=== PATIENT | female | born 1985 | race Caucasian/White ===

== ENCOUNTER 2019-02-09 22:52 | Emergency (ER) | payer OTHER ==
[~2019-02-09] VITALS: Ht 162.6 cm; Wt 97.5 kg
[~2019-02-09 22:52] MED LIST: ACET500 PO; ALBU90OI INH; AMOX500 PO; AZIT250 PO; BRINTELLIX10 MG PO; BUSP15 PO; FAMO40 PO; FLUO20 PO; HYDACE5 PO; HYDACE5325 PO; MULVITMINE PO; OMEP20ER PO; ONDA4 PO; PREN-16 PO; PROM25 PO; RANI150 PO; RXHYD5325 PO; RXHYDACE PO; RXPROM25 PO; SERT25 PO; TRI SPRINTEC; WELLBUTRIN; ZOLOFT
[2019-02-09] MEDS ORDERED: HYDROXYZINE HCL 10 MG (23:10)
[2019-02-09] MEDS ORDERED: BRINTELLIX20 MG PO (23:10)
[2019-02-09] MEDS ORDERED: Minipress1 MG PO (23:10)
[2019-02-09] MEDS ORDERED: SUBVENITE200 MG PO (23:10)
[2019-02-09] MEDS ORDERED: Atarax10 MG PO (23:23)
[2019-02-09] MEDS ORDERED: LAMO25 PO (23:25)
[2019-02-09] MEDS ORDERED: Zantac150 MG PO (23:26)
[2019-02-09] MEDS ORDERED: ARIPIPRAZOLE5 MG PO (23:27)
== END 2019-02-10 00:17 | disposition home or self-care (01) ==
LOC: ER 22:52
DX: S51.812A Laceration without foreign body of left forearm, initial encounter (principal); W26.0XXA Contact with knife, initial encounter; Z88.8 Allergy status to other drugs, medicaments and biological substances; Z79.899 Other long term (current) drug therapy; F32.9 Major depressive disorder, single episode, unspecified; K21.9 Gastro-esophageal reflux disease without esophagitis; F17.210 Nicotine dependence, cigarettes, uncomplicated
CPT/HCPCS: 12001; 99282-25

== ENCOUNTER 2019-04-16 12:18 | Emergency (ER) | payer OTHER ==
[~2019-04-16] VITALS: Ht 162.6 cm; Wt 96.6 kg
[~2019-04-16 12:18] MED LIST changes: +ARIPIPRAZOLE5 MG PO; +Atarax10 MG PO; +BRINTELLIX20 MG PO; +CALCIUM 500 +1 EAC2 PO; +HYDR1TAB94 PO; +Minipress1 MG PO; +SUBVENITE200 MG PO; +Zantac150 MG PO
[2019-04-16 13:39] LABS: BASOPHILS ABSOLUTE AUTO 0.03 K/mm3 (0.00-0.23); BASOPHILS PERCENT AUTO 1 % (0-2); EOSINOPHILS ABSOLUTE AUTO 0.03 K/mm3 (0.00-0.68); EOSINOPHILS PERCENT AUTO 1 % (0-6); Hematocrit 41.3 % (33.0-51.0); Hemoglobin 13.5 g/dL (11.5-16.0); IMMATURE GRAN ABSOLUTE AUTO 0.01 K/mm3 (0.00-0.10); IMMATURE GRAN PERCENT AUTO 0 % (0-1); LYMPHOCYTES ABSOLUTE AUTO 1.16 K/mm3 (0.84-5.20); LYMPHOCYTES PERCENT AUTO 36 % (21-46); MONOCYTES ABSOLUTE AUTO 0.31 K/mm3 (0.16-1.47); MONOCYTES PERCENT AUTO 10 % (4-13); Mean Corpuscular HGB 30.3 pg (26.0-34.0); Mean Corpuscular HGB Conc 32.7 g/dL (31.5-36.5); Mean Corpuscular Volume 93 fL (80-100); Mean Platelet Volume 10.6 fL (9.1-12.4); NEUTROPHILS ABSOLUTE AUTO 1.65 K/mm3 (1.96-9.15); NEUTROPHILS PERCENT AUTO 52 % (41-73); Platelet Count 190 K/mm3 (150-400); RDW Coefficient Variation 13.1 % (11.7-14.2); RDW Standard Deviation 44.7 fL (35.1-46.3); Red Blood Cell Count 4.46 M/mm3 (3.80-5.20); White Blood Cell Count 3.19 K/mm3 (4.00-11.30)
[2019-04-16 13:59] LABS: Alanine Aminotransfer (ALT/SGP 1260 U/L (12-78); Albumin, Blood 3.7 g/dL (3.4-5.0); Albumin/Globulin Ratio 1.1 (0.8-1.8); Alk Phos 163 U/L (50-136); Anion Gap 6 mmol/L (6-16); Aspartate Aminotrans (AST/SGOT 935 U/L (12-37); Bilirubin, Total 0.6 mg/dL (0.1-1.0); Blood Urea Nitrogen 20 mg/dL (8-24); Bun/Creatinine Ratio 25.5 (12.0-20.0); CO2, Blood 27 mmol/L (21-32); Calcium, Blood 9.2 mg/dL (8.5-10.1); Chloride, Blood 107 mmol/L (98-108); Creatinine, Blood 0.78 mg/dL (0.40-1.00); Globulin, Blood 3.3 g/dL (2.2-4.0); Glomerular Filtration Rate >60 (60-); Glucose, Blood 93 mg/dL (70-99); Potassium, Blood 4.2 mmol/L (3.5-5.5); Sodium, Blood 140 mmol/L (136-145)
[2019-04-16 15:12] LABS: Source, Urine Clean Catch
[2019-04-16 15:20] LABS: Bilirubin, Urine Neg (Neg); Blood, Urine Neg (Neg); Glucose Qualitative, Urine Neg (Neg); Ketones, Urine Neg (Neg); Leukocyte Esterase, Urine Neg (Neg); Nitrite, Urine Neg (Neg); Protein, Urine Neg (Neg); Specific Gravity, Urine 1.015 (1.003-1.022); Urobilinogen, Urine NORM (Normal)
[2019-04-16 15:29] LABS: Appearance, Urine Clear (Clear); Color, Urine Yellow (P-Yellow)
[2019-04-16] MEDS ORDERED: ONDA4ODT SL (15:30)
[2019-04-16] MEDS ORDERED: IBUP400 PO (15:30)
== END 2019-04-16 15:57 | disposition home or self-care (01) ==
LOC: ER 12:18
PROVIDERS: Physician Assistant
DX: R11.2 Nausea with vomiting, unspecified (principal); R10.9 Unspecified abdominal pain; R74.0 Nonspecific elevation of levels of transaminase and lactic acid dehydrogenase [LDH]; D72.819 Decreased white blood cell count, unspecified; F17.200 Nicotine dependence, unspecified, uncomplicated; Z87.442 Personal history of urinary calculi; Z88.8 Allergy status to other drugs, medicaments and biological substances; Z79.899 Other long term (current) drug therapy
CPT/HCPCS: 36415; 80053; 81003; 83690; 85025; 96374; 99284-25; J2405; J7120

== ENCOUNTER 2021-03-10 11:31 | Emergency (ER) | payer OTHER ==
[~2021-03-10] VITALS: Ht 162.6 cm; Wt 86.2 kg
[~2021-03-10 11:31] MED LIST changes: +IBUP400 PO; +ONDA4ODT SL
== END 2021-03-10 12:35 | disposition home or self-care (01) ==
LOC: ER 11:31
DX: S51.811A Laceration without foreign body of right forearm, initial encounter (principal); Z23 Encounter for immunization; K21.9 Gastro-esophageal reflux disease without esophagitis; Z79.899 Other long term (current) drug therapy; Z88.8 Allergy status to other drugs, medicaments and biological substances; W45.8XXA Other foreign body or object entering through skin, initial encounter
CPT/HCPCS: 12002; 90471; 90714; 99282-25

== ENCOUNTER 2023-04-22 09:26 | Emergency (ER) | payer OTHER ==
[~2023-04-22] VITALS: Ht 162.6 cm; Wt 72.6 kg
[2023-04-22] MEDS ORDERED: AMOCLA875 PO (11:40)
[2023-04-22 11:56] VITALS: BP 126/77
== END 2023-04-22 12:01 | disposition home or self-care (01) ==
LOC: ER 09:26
DX: K02.9 Dental caries, unspecified (principal); F17.210 Nicotine dependence, cigarettes, uncomplicated; K21.9 Gastro-esophageal reflux disease without esophagitis; Z79.899 Other long term (current) drug therapy; Z88.6 Allergy status to analgesic agent; Z88.8 Allergy status to other drugs, medicaments and biological substances
CPT/HCPCS: 64400; 99282-25

== ENCOUNTER 2024-06-19 18:03 | Observation (INO) | payer OTHER ==
[~2024-06-19] VITALS: Ht 157.5 cm; Wt 49.9 kg
[~2024-06-19 18:03] MED LIST changes: +AMOCLA875 PO; +CEPH500 PO
[2024-06-19] MEDS ORDERED: Ondansetron HCl 2 MG / ML 2ML Vial IV ONE ×2 (19:05→23:25)
[2024-06-19] MEDS ORDERED: Ketorolac Tromethamine 15mg Vial IV ONE (19:05)
[2024-06-19 20:11] LABS: BASOPHILS ABSOLUTE AUTO 0.03 K/mm3 (0.00-0.23); BASOPHILS PERCENT AUTO 0 % (0-2); EOSINOPHILS ABSOLUTE AUTO 0.03 K/mm3 (0.00-0.68); EOSINOPHILS PERCENT AUTO 0 % (0-6); Hematocrit 42.5 % (33.0-51.0); Hemoglobin 13.7 g/dL (11.5-16.0); IMMATURE GRAN ABSOLUTE AUTO 0.02 K/mm3 (0.00-0.10); IMMATURE GRAN PERCENT AUTO 0 % (0-1); LYMPHOCYTES ABSOLUTE AUTO 1.62 K/mm3 (0.84-5.20); LYMPHOCYTES PERCENT AUTO 17 % (21-46); MONOCYTES ABSOLUTE AUTO 0.57 K/mm3 (0.16-1.47); MONOCYTES PERCENT AUTO 6 % (4-13); Mean Corpuscular HGB 26.2 pg (26.0-34.0); Mean Corpuscular HGB Conc 32.2 g/dL (31.5-36.5); Mean Corpuscular Volume 81 fL (80-100); Mean Platelet Volume 9.3 fL (9.1-12.4); NEUTROPHILS ABSOLUTE AUTO 7.39 K/mm3 (1.96-9.15); NEUTROPHILS PERCENT AUTO 77 % (41-73); Platelet Count 274 K/mm3 (150-400); RDW Coefficient Variation 14.5 % (11.7-14.2); RDW Standard Deviation 42.8 fL (35.1-46.3); Red Blood Cell Count 5.22 M/mm3 (3.80-5.20); White Blood Cell Count 9.66 K/mm3 (4.00-11.30)
[2024-06-19 20:17] LABS: CORONAVIRUS COVID-19 AG Negative (NEGATIVE); INFLUENZA A AG Negative (NEGATIVE); INFLUENZA B AG Negative (NEGATIVE)
[2024-06-19 20:34] LABS: Magnesium, Blood 2.1 mg/dL (1.6-2.4)
[2024-06-19 20:35] LABS: Salicylate <1.7 mg/dL (2.8-20.0)
[2024-06-19 20:36] LABS: Alanine Aminotransfer (ALT/SGP 87 U/L (12-78); Albumin, Blood 3.4 g/dL (3.4-5.0); Albumin/Globulin Ratio 0.8 (0.8-1.8); Alk Phos 171 U/L (50-136); Anion Gap 7 mmol/L (3-11); Aspartate Aminotrans (AST/SGOT 27 U/L (12-37); Bilirubin, Total 0.3 mg/dL (0.1-1.0); Blood Urea Nitrogen 16 mg/dL (8-24); Bun/Creatinine Ratio 27.8 (12.0-20.0); CO2, Blood 29 mmol/L (21-32); Calcium, Blood 9.2 mg/dL (8.5-10.1); Chloride, Blood 108 mmol/L (98-108); Creatinine, Blood 0.58 mg/dL (0.40-1.00); Globulin, Blood 4.4 g/dL (2.2-4.0); Glomerular Filtration Rate 119 (60-); Glucose, Blood 132 mg/dL (70-99); Potassium, Blood 3.7 mmol/L (3.5-5.5); Sodium, Blood 140 mmol/L (136-145); Total Protein, Blood 7.8 g/dL (6.4-8.2)
[2024-06-19 20:37] LABS: Acetaminophen, Random <2.0 ug/mL (10.0-30.0)
[2024-06-19] MEDS ORDERED: Ondansetron 4 MG SoluTab SL PRN (23:35)
[2024-06-20] MEDS ORDERED: Loperamide HCl 2 MG Cap PO PRN ×2 (14:40)
[2024-06-20 16:33] LABS: Source, Urine Clean Catch
[2024-06-20 16:40] LABS: Appearance, Urine Hazy (Clear); Bilirubin, Urine Neg (Neg); Blood, Urine Neg (Neg); Glucose Qualitative, Urine Neg (Neg); Ketones, Urine Neg (Neg); Leukocyte Esterase, Urine 3+ (Neg); Nitrite, Urine Neg (Neg); Protein, Urine 1+ (Neg); Urobilinogen, Urine 1+ (Normal)
[2024-06-20 17:00] LABS: U Amphetamine Screen DETECTED; U Barbituate Screen Not Detected; U Benzodiazapine Screen Not Detected; U Buprenorphine Screen Not Detected; U Cannabinoids Screen Not Detected; U Cocaine Screen Not Detected; U Methadone Screen Not Detected; U Methamphetamine Screen DETECTED; U Opiates Screen Not Detected; U Oxycodone Screen Not Detected; U Phencyclidine Screen Not Detected
[2024-06-20 17:04] LABS: Color, Urine Pale Yellow (P-Yellow)
[2024-06-20 17:06] LABS: Amorphous Light (0-Heavy); Bacteria Many /hpf; Red Blood Cells, Urine 0-2 /hpf (0-2); Squamous Epithelial Cells Few /hpf (Few)
[2024-06-20 20:12] VITALS: BP 135/90
[2024-06-20] MEDS ORDERED: Cephalexin Monohydrate 500 MG Cap PO SCH (21:00)
[2024-06-22 23:05] LABS: FENTANYL, URN, SCREEN PresumptivePOS ng/mL (Cutoff 1)
[2024-06-25 18:54] LABS: FENTANYL, URN, QUANT <1.0 ng/mL; NORFENTANYL, URN, QUANT 52.8 ng/mL
== END 2024-06-20 21:45 | disposition other institution (70) ==
LOC: ER 18:03 → EOR 18:04
PROVIDERS: Student in an Organized Health Care Education/Training Program; ADMIT Student in an Organized Health Care Education/Training Program
DX: F33.2 Major depressive disorder, recurrent severe without psychotic features (principal); R45.851 Suicidal ideations; F11.20 Opioid dependence, uncomplicated; F15.20 Other stimulant dependence, uncomplicated; F43.10 Post-traumatic stress disorder, unspecified; F17.210 Nicotine dependence, cigarettes, uncomplicated; K21.9 Gastro-esophageal reflux disease without esophagitis; R10.9 Unspecified abdominal pain; Z88.8 Allergy status to other drugs, medicaments and biological substances
CPT/HCPCS: 74177; 80053; 80307; 80320; 81001; 81025; 83690; 83735; 84703; 85025; 87086; 87428-QW; 93005; 93010; 96374; 96375; 96376; 99285-25; A9270; G0378; G0480; J1885; J2405; Q9967

== ENCOUNTER 2024-06-20 12:13 | Inpatient (IN) | payer OTHER ==
[~2024-06-20] VITALS: Ht 162.6 cm; Wt 61.7 kg
[2024-06-20] MEDS ORDERED: TraZODone HCl 50 MG Tab PO PRN (13:30)
[2024-06-20] MEDS ORDERED: Ondansetron 4 MG SoluTab MM PRN (13:30)
[2024-06-20] MEDS ORDERED: Melatonin 3 MG Tab PO PRN (13:30)
[2024-06-20] MEDS ORDERED: Polyethylene Glycol 3350 17 gm PO PRN (13:30)
[2024-06-20] MEDS ORDERED: OLANZapine ODT 10 MG Tab MM PRN (13:30)
[2024-06-20] MEDS ORDERED: Acetaminophen 325 MG TABLET PO PRN (13:30)
[2024-06-20] MEDS ORDERED: DiphenhydrAMINE HCl 50 MG Cap PO PRN (13:35)
[2024-06-20] MEDS ORDERED: Calcium Carbonate 500 MG Tab Chew PO PRN (13:35)
[2024-06-20] MEDS ORDERED: DiphenhydrAMINE HCl 50 MG/ML 1ML Vial IV PRN (13:35)
[2024-06-20] MEDS ORDERED: Haloperidol 5 MG Tab PO PRN (13:35)
[2024-06-20] MEDS ORDERED: FLU VACC TS2024-25(6MOS UP)/PF 45 MCG/0.5 ML SYRINGE IM ONE (13:35)
[2024-06-20] MEDS ORDERED: Aluminum Hydroxide 320MG/5ML 473 ML PO PRN (13:35)
[2024-06-20] MEDS ORDERED: Haloperidol Lactate Inj. 5 MG/ML Injection IM PRN (13:35)
[2024-06-20] MEDS ORDERED: LORazepam 2 MG Tab PO PRN (13:40)
[2024-06-20] MEDS ORDERED: LORazepam 2 MG/ML 1ML Injection IM PRN (13:40)
[2024-06-20] MEDS ORDERED: HydrOXYzine Pamoate 50 MG Cap PO PRN (13:40)
[2024-06-20] MEDS ORDERED: Sertraline HCl 50 MG Tab PO SCH (14:00)
[2024-06-20] MEDS ORDERED: ClonazePAM 0.5 MG Tab PO PRN (14:45)
[2024-06-20] MEDS ORDERED: Loperamide HCl 2 MG Cap PO PRN ×2 (18:10→18:15)
[2024-06-20 22:42] VITALS: BP 141/90
[2024-06-21 02:18] VITALS: BP 141/90
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
[2024-06-21 09:00] VITALS: BP 151/95
[2024-06-21] MEDS ORDERED: Multivitamins 1 Tab PO SCH (09:00)
[2024-06-21] MEDS ORDERED: Buprenorphine HCL/Naloxone HCL 8MG-2MG Tab SL SCH (11:00)
[2024-06-21] MEDS ORDERED: Nicotine 14 MG PATCH TOP SCH (11:20)
[2024-06-21] MEDS ORDERED: Nicotine Polacrilex 2 MG Gum PO PRN (11:20)
[2024-06-21] MEDS ORDERED: Cephalexin Monohydrate 500 MG Cap PO SCH (13:00)
--- NOTE | 2024-06-21 17:25 | NUR ---
SHIFT SUMMARY PT AxOx4. PLEASANT AND COOPERATIVE WITH CARE, BUT TEARFUL, WITHDRAWN BEHAVIOR T/O THE DAY. PT HAS BEEN FOLLOWING CARE PLAN THIS SHIFT INCLUDING TAKING MEDS PRESCRIBED, ATTENDING ALL MILIEU GROUPS AND MINGLING APPROPRIATELY WITH STAFF AND PEERS. PT REPORTS MOOD "SAME, REALLY TIRED, AND JUST DON'T FEEL RIGHT." PT ENDORSED SI WITH PLAN TO OD BUT NO INTENT AT THIS TIME. DENIED HI OR AVTH. PT STATES "I JUST HAVE NOBODY NOW SO WHAT'S THE POINT" PT REQUESTS TO SPEAK WITH STAFF DURING ONE OF TEARFUL TIMES. THIS RN RESPONDED WITH THERAPEUTIC COMMUNICATION. PT REPORTED RELIEF AFTER THIS VISIT, ALSO NOTING MORE CALM DEMEANOR. PT STARTED ON SUBOXONE THIS SHIFT ALONG WITH ZOLOFT AND ANTIBIOTIC FOR UTI. PATIENT EDUCATION PROVIDED/DISCUSSED. PT DENIES SIDE EFFECTS AT THIS TIME. PT IS CURRENTLY SITTING IN CHAIR IN HALLWAY LOOKING DOWN/STARING OFF. SHE STILL APPEARS SAD AND WITHDRAWN THIS EVENING BUT A BIT MORE INTERACTIVE WITH PEERS/STAFF. PT DENIES ANY NEEDS AT THIS TIME.
[2024-06-21] MEDS ORDERED: QUEtiapine Fumarate 50 MG TAB PO SCH (21:00)
[2024-06-21] MEDS ORDERED: Prazosin HCl 1 MG Cap PO SCH (21:00)
[2024-06-21 21:17] VITALS: BP 142/89
[2024-06-22] MEDS ORDERED: Cephalexin Monohydrate 500 MG Cap PO SCH (10:43)
[2024-06-22 12:24] VITALS: BP 140/82
--- NOTE | 2024-06-22 14:02 | NUR ---
SEE HARD CHART FOR DOWNTIME CHARTING BETWEEN [phone].
--- NOTE | 2024-06-22 17:23 | NUR ---
SHIFT SUMMARY PT AxOx4. PLEASANT AND COOPERATIVE WITH CARE. PT REPORTS FEELING "OKAY" THIS SHIFT. SHE DID SHOW WITHDRAWN/ISOLATING BEHAVIOR FOR PART OF THE DAY, BUT ALSO REPORTED SHE WAS HAVING HEAD/FACE PAIN R/T HER TMJ AND THAT SEEMED TO COORELATE. PT WAS MEDICATED FOR HER PAIN WITH REPORTED RELIEF. PT DENIES SI/HI AND AVTH TODAY. PT PARTICIPATED IN GROUPS THIS SHIFT, TOOK A SHOWER AND TOOK ALL HER MEDS PRESCRIBED. THERAPY DOG VISITED [facility] AND THAT ALSO SEEMED TO PERK HER UP, NOTED IN HER SMILING AND ENGAGEMENT DURING VISIT. PT IS CURRENLTY EATING DINNER IN THE DINING ROOM, SOCIALIZING WITH PEERS. SHE DENIES ANY NEEDS AT THIS TIME.
--- NOTE | 2024-06-23 05:34 | NUR ---
Patient is alert and oriented times four. She is quiet and spent all evening in her room not participating in the milieu. She has a very sad affect and speaks very quietly. very minimal eye contact at best. Stated at the time she has no SI,HI or AVH. Will continue close monitoring every 15 minutes for safety and comfort
[2024-06-23] MEDS ORDERED: QUEtiapine Fumarate 25 MG Tab PO SCH (10:00)
[2024-06-23 14:27] VITALS: BP 150/94
--- NOTE | 2024-06-23 14:27 | NUR ---
PT STATES THAT SHE HAS BEEN FEELING DIZZY WHEN STANDING UP. VITAL SIGNS CHECKED, HR 76 AND B/P 150/94. DISCUSSED MEDICATION CHANGE AND SIDE EFFECTS. ENCOURAGED PT TO STAND SLOWLY WHEN SHE HAS BEEN LAYING DOWN. PT STATED CLEAR UNDERSTANDING. ENCOURAGED HER TO LET STAFF KNOW IF SHE CONTINUES TO HAVE ANY FURTHER TROUBLE.
--- NOTE | 2024-06-23 17:18 | NUR ---
SHIFT SUMMARY: PT ALERT, ORIENTED AND COOPERATIVE. COMPLIANT WITH MEDICATIONS AND CARE. PT DENIED SI, HI AND AVH. DENTAL HYGIENIST CAME TO SEE PT TODAY AND PLACED A REFERRAL TO [facility] FOR DISCHARGE. PT ACTIVE IN UNIT MILIEU, TALKING WITH STAFF AND PEERS AND WATCHING TV. PT ENGAGED IN GROUPS AND ATTENDED MEALS.
[2024-06-23 21:04] VITALS: BP 143/98
--- NOTE | 2024-06-24 04:40 | NUR ---
shift summary Patient was out in the milieu playing games with her peers last evening. She is alert and oriented times 4. No SI,HI or AVH noted on assessment. No complaints of pain or idscomfort. flat affect of the last couple of days has disappeared. Will continue close monitoring every 15 minutes for comfort and safety.
--- NOTE | 2024-06-24 16:52 | NUR ---
SHIFT SUMMARY: PT ALERT, ORIENTED AND COOPERATIVE WITH CARE. DENIED SI, HI AND AVH. COMPLIANT WITH MEDICATIONS. UP FOR MEALS AND GROUPS. ENGAGED IN UNIT MILIEU, WATCHING TV AND TALKING WITH PEERS. STAFF FROM [facility] CAME AND TALKED WITH PT. WILL BE RETURNING TOMORROW TO FOLLOW UP BETWEEN 1-3 ON 06/25.
--- NOTE | 2024-06-25 04:13 | NUR ---
SHIFT SUMMARY: ASSUMED CARE FROM PRIOR SHIFT. PATIENT IS A/OX4, ABLE TO VOICE NEEDS AND HAVE MEANNINGFUL CONVERSATION. SHE IS ALREADY IN BED AT BEGINNING OF SHIFT. SHE DOESN'T ENGAGE IN EVENING GROUP OR PM SNACK. SHE APPEARS TO BE WHITH DRAWN. SHE CURRENTLY DENIES SI, VH, AH AND TH. SHE DOES TELL ME "I FEEL DEPRESSED'. SHE IS COMPLIANT WITH MEDICATIONS, ASSESSMENT AND CARE. SHE DOES SLEEP THROUGH THE NIGHT. NO NOTED BEHAVIORS OR ISSUES. WE WILL OFFER GRIEF SUPPORT AT DISCHARGE SHE TELLS ME HER SO OVERDOSED AND NOT LONG AGO. I WILL PASS ON RESOURCES AT NEXT SHIFT. WE WILL CONTINUE TO MONITOR FOR SAFETY AND COMFORT EVERY 15 MIN.
[2024-06-25 08:20] VITALS: BP 134/76
--- NOTE | 2024-06-25 17:20 | NUR ---
SHIFT NOTE PT UP FOR MEALS AND SNACKS. SHE PARTICIPATED IN SOME ACTIVITIES BUT NOT ALL. SHE DEIES ANY SI/HI/AVH. SHE ALSO DENIES ANY W/D SYMPTOMS THIS SHIFT. PT HAD A CONSULTATION WITH [facility] TODAY. THIS EVENING SHE WANTED TO LEAVE THE UNIT AMA. WAS NOTIFIED BY [facility]ED. [facility] IS SUPPOSED TO BE HERE TOMORROW MORNING TO CONSULT WITH PT AGAIN. NO OTHER CONCERNS OR ISSUES THIS SHIFT. PT WAS COMPLIANT WITH CARE AND MEDS AND APPEARED IN NAD.
[2024-06-25 22:42] VITALS: BP 123/82
--- NOTE | 2024-06-26 03:34 | NUR ---
SHIFT SUMMARY: ASSUMED CARE FROM PRIOR SHIFT. PATIENT WAS OBSERVED WALKING THE HALLWAY WITH OTHER MALE PATIENT. SHE SEEMED VERY ENGAGED WITH HIM UNTIL HE DECIDED TO GO WATCH A MOVIE. SHE DID FOLLOW HIM INTO THE TV ROOM AND PROCEDED TO SIT ON THE FLOOR UNDER THE TABLE AND COVER HERSELF, INCLUDING HER HEAD WITH A BLANKET. RN REMINDED PATIENT TO SIT ON A CHAIR AND REMOVE THE BLANKET FROM HER HEAD AND FACE. ON ASSESSMENT, SHE SEEMED AGITATED, RESTLESS AND ANXIOUS. WE TALKED ABOUT HER VISIT WITH [facility] ALONG WITH THE ANXIETY OF HAVING A NEW ROOM-MATE. SHE C/O THE ROOM-MATE SNORING AND HAVING "RESTLESS LEGS". SHE WAS AGREEABLE TO TAKING HER PM MEDICATIONS. SHE DENIES SI, VH, AH AND TH. SHE IS AGREEABLE TO AGITATION, ANXIETY AND PHOTOPHOBIA. SHE IS COMPLIANT WITH MEDICATIONS, ASSESSSMENT AND CARE. SHE IS CURRENTLY SLEEPING WITHOUT INTERUPTION. NO NOTED BEHAVIORS OR ISSUES. WE WILL CONTINUE TO MONITOR EVERY 15 MIN FOR SAFETY AND COMFORT.
--- NOTE | 2024-06-26 05:30 | NUR ---
PATIENT WENT BACK TO SLEEP WITH RELEIF OF SHOULDER PAIN. NO NOTED BEHAVIORS OR ISSUES.
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
[2024-06-26 23:39] VITALS: BP 127/73
--- NOTE | 2024-06-27 03:36 | NUR ---
SHIFT SUMMARY: ASSUMED CARE FROM PRIOR SHIFT. PATIENT IS A/OX4, ABLE TO VOICE NEEDS AND HAVE MEANINGFUL CONVERSATION. SHE IS AWAKE AND PARTICIPATING THIS SHIFT WITH SNACK AND GROUP. SHE IS COMPLIANT WITH MEDICATIONS, ASSESSMENT AND CARE. SHE CURRENTLY DENIES SI, VH, AH AND TH. SHE GOES TO BED WITHOUT ENCOURAGMENT. HER MOOD SEEMS MORE ELEVATED SHE IS SMILING AND ENGAGING IN CONVERSATION. SHE IS CURRENTLY SLEEPING. NO NOTED BEHAVIORS OR ISSUES. WE WILL CONTINUE TO MONITOR EVERY 15 MIN FOR COMFORT AND SAFETY.
--- NOTE | 2024-06-27 05:22 | NUR ---
PATIENT WOKE UP AROUND 430 AM REQUESTING PRN TYLENOL FOR BILATERAL SHOULDER PAIN 12/09. RECHECKED COMFORT LEVEL AT 515AM AND PATIENT WAS ALREADY BACK TO SLEEP. NO NOTED BEHAVIORS OR ISSUES.
[2024-06-27 08:07] VITALS: BP 106/64
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
[2024-06-27 23:04] VITALS: BP 134/80
--- NOTE | 2024-06-28 03:52 | NUR ---
SHIFT SUMMARY: ASSUMED CARE FROM PRIOR SHIFT. PATIENT IS UP AND SOCIALIZING AT BEGINNING OF SHIFT. SHE IS SMILING AND LAUGHING WITH OTHERS. SHE IS A LITTLE ANXIOUS SHE IS TRYING TO FIGURE OUT HOW TO GET HER CAR OUT OF [employer]. REMINDED HER THAT SHE NEEDS TO FINISH HER RECOVERY, FOCUS ON FUTURE PLANNING, AND STAYING SOBOR. SHE DENIES SI, AH, VH AND TH. SHE IS COMPLIANT WITH MEDICATIONS, ASSESSMENT AND CARE. SHE GOES TO BED WITHOUT ENCOURAGEMENT. NO NOTED BEHAVIORS OR ISSUES. SHE IS CURRENTLY SLEEPING. WE WILL MONITOR EVERY 15 MIN FOR COMFORT AND SAFETY.
--- NOTE | 2024-06-28 05:45 | NUR ---
PATIENT SLEPTED THROUGH THE NIGHT. NO NOTED BEHAVIORS OR ISSUES.
--- NOTE | 2024-06-28 11:59 | NUR ---
IMPORTANT HOSPITAL DISCHARGE INFORMATION MERVIN peer support from [facility] to pepper picker patient from [facility] at discharge on Friday, June 28, 2024 at 1500 [facility] clinic charge nurse notified
--- NOTE | 2024-06-28 13:27 | NUR ---
HOSPITAL DISCHARGE APPOINTMENT Patient has hospital discharge appointment scheduled with NORMA Enriquez on 06/29/2024 at 1300 at [facility] // [address], [place] [address] // [phone] NATHALY entered information into patient's discharge packet
--- NOTE | 2024-06-28 15:13 | NUR ---
PT DISCHARGED AT 1450. EDUCATION PROVIDED, PRESCRIPTIONS CALLED INTO [facility] IN [place], [place]. BELONGINGS RETURNED. DISCARGE INSTRUCTONS UNDERSTOOD VIA VERBAL RETURN OF UNDERSTANDING. DECLINED OFFER OF TOBACCO CESSATION COUSELING. PT ALERT AND ORIENTED. RIDE PROVIDED BY SHAN.
== END 2024-06-28 14:50 | disposition home or self-care (01) | DRG 885 ==
LOC: BHU 12:13
PROVIDERS: ADMIT Student in an Organized Health Care Education/Training Program
DX: F33.2 Major depressive disorder, recurrent severe without psychotic features (principal); F11.23 Opioid dependence with withdrawal; R45.851 Suicidal ideations; F15.20 Other stimulant dependence, uncomplicated; Z28.21 Immunization not carried out because of patient refusal; F43.10 Post-traumatic stress disorder, unspecified; F41.1 Generalized anxiety disorder; Z79.899 Other long term (current) drug therapy
CPT/HCPCS: A9270

== ENCOUNTER 2024-07-06 15:00 | Emergency (ER) | payer OTHER ==
[~2024-07-06] VITALS: Ht 170.2 cm; Wt 65.8 kg
[2024-07-06 15:04] VITALS: BP 145/99
[2024-07-06] MEDS ORDERED: Ondansetron HCl 2 MG / ML 2ML Vial IV PRN (15:10)
[2024-07-06 16:22] LABS: BASOPHILS ABSOLUTE AUTO 0.04 K/mm3 (0.00-0.23); BASOPHILS PERCENT AUTO 0 % (0-2); EOSINOPHILS ABSOLUTE AUTO 0.11 K/mm3 (0.00-0.68); EOSINOPHILS PERCENT AUTO 1 % (0-6); Hematocrit 37.2 % (33.0-51.0); Hemoglobin 11.8 g/dL (11.5-16.0); IMMATURE GRAN ABSOLUTE AUTO 0.02 K/mm3 (0.00-0.10); IMMATURE GRAN PERCENT AUTO 0 % (0-1); LYMPHOCYTES ABSOLUTE AUTO 2.16 K/mm3 (0.84-5.20); LYMPHOCYTES PERCENT AUTO 24 % (21-46); MONOCYTES ABSOLUTE AUTO 0.65 K/mm3 (0.16-1.47); MONOCYTES PERCENT AUTO 7 % (4-13); Mean Corpuscular HGB 26.3 pg (26.0-34.0); Mean Corpuscular HGB Conc 31.7 g/dL (31.5-36.5); Mean Corpuscular Volume 83 fL (80-100); Mean Platelet Volume 9.4 fL (9.1-12.4); NEUTROPHILS ABSOLUTE AUTO 5.93 K/mm3 (1.96-9.15); NEUTROPHILS PERCENT AUTO 67 % (41-73); Platelet Count 324 K/mm3 (150-400); RDW Coefficient Variation 15.3 % (11.7-14.2); RDW Standard Deviation 45.4 fL (35.1-46.3); Red Blood Cell Count 4.48 M/mm3 (3.80-5.20); White Blood Cell Count 8.91 K/mm3 (4.00-11.30)
[2024-07-06 16:48] LABS: Albumin, Blood 3.7 g/dL (3.4-5.0); Bilirubin, Total 0.5 mg/dL (0.1-1.0); Bun/Creatinine Ratio 23.6 (12.0-20.0); Calcium, Blood 8.5 mg/dL (8.5-10.1); Creatinine, Blood 0.76 mg/dL (0.40-1.00); Globulin, Blood 3.6 g/dL (2.2-4.0); Potassium, Blood 3.8 mmol/L (3.5-5.5); Total Protein, Blood 7.3 g/dL (6.4-8.2)
== END 2024-07-06 16:30 | disposition left against medical advice (07) ==
LOC: ER 15:00
PROVIDERS: Emergency Medicine
DX: R07.89 Other chest pain (principal); Z53.21 Procedure and treatment not carried out due to patient leaving prior to being seen by health care provider
CPT/HCPCS: 71046; 80053; 83690; 84484; 85025; 93005; 93010

== ENCOUNTER 2024-08-26 23:47 | Emergency (ER) | payer OTHER ==
[~2024-08-26] VITALS: Ht 162.6 cm; Wt 63.5 kg
[2024-08-27 02:45] VITALS: BP 132/87
[2024-08-27] MEDS ORDERED: Acetaminophen 500 MG Tab PO ONE (05:10)
== END 2024-08-27 05:38 | disposition home or self-care (01) ==
LOC: ER 23:47
DX: G44.209 Tension-type headache, unspecified, not intractable (principal); F17.210 Nicotine dependence, cigarettes, uncomplicated; K21.9 Gastro-esophageal reflux disease without esophagitis; Z88.6 Allergy status to analgesic agent; Z88.8 Allergy status to other drugs, medicaments and biological substances
CPT/HCPCS: 70450; 99284-25; A9270

== ENCOUNTER 2025-01-16 06:31 | Emergency (ER) | payer OTHER ==
[~2025-01-16] VITALS: Ht 162.6 cm; Wt 61.2 kg
[2025-01-16 07:01] LABS: BASOPHILS ABSOLUTE AUTO 0.05 K/mm3 (0.00-0.23); BASOPHILS PERCENT AUTO 1 % (0-2); EOSINOPHILS ABSOLUTE AUTO 0.04 K/mm3 (0.00-0.68); EOSINOPHILS PERCENT AUTO 0 % (0-6); Hematocrit 37.8 % (33.0-51.0); Hemoglobin 12.0 g/dL (11.5-16.0); IMMATURE GRAN ABSOLUTE AUTO 0.03 K/mm3 (0.00-0.10); IMMATURE GRAN PERCENT AUTO 0 % (0-1); LYMPHOCYTES ABSOLUTE AUTO 1.52 K/mm3 (0.84-5.20); LYMPHOCYTES PERCENT AUTO 15 % (21-46); MONOCYTES ABSOLUTE AUTO 0.78 K/mm3 (0.16-1.47); MONOCYTES PERCENT AUTO 8 % (4-13); Mean Corpuscular HGB Conc 31.7 g/dL (31.5-36.5); Mean Corpuscular Volume 84 fL (80-100); NEUTROPHILS ABSOLUTE AUTO 7.93 K/mm3 (1.96-9.15); NEUTROPHILS PERCENT AUTO 77 % (41-73); NRBC ABSOLUTE 0.00 K/mm3 (0.00-0.02); NRBC Auto 0.0 /100 WBC (0.0-0.2); Platelet Count 259 K/mm3 (150-400); RDW Coefficient Variation 15.1 % (11.7-14.2); RDW Standard Deviation 46.2 fL (35.1-46.3)
[2025-01-16 07:16] LABS: Alanine Aminotransfer (ALT/SGP 59.0 U/L (12-78); Albumin, Blood 3.4 g/dL (3.4-5.0); Albumin/Globulin Ratio 0.9 (0.8-1.8); Anion Gap 5.0 mmol/L (3-11); Aspartate Aminotrans (AST/SGOT 17.0 U/L (12-37); Bilirubin, Total 0.4 mg/dL (0.1-1.0); Blood Urea Nitrogen 13.0 mg/dL (8-24); CO2, Blood 27.0 mmol/L (21-32); Calcium, Blood 8.7 mg/dL (8.5-10.1); Chloride, Blood 105.0 mmol/L (98-108); Creatinine, Blood 0.75 mg/dL (0.40-1.00); Globulin, Blood 3.7 g/dL (2.2-4.0); Glucose, Blood 113.0 mg/dL (70-99); Potassium, Blood 3.2 mmol/L (3.5-5.5); Sodium, Blood 134.0 mmol/L (136-145); Total Protein, Blood 7.1 g/dL (6.4-8.2)
[2025-01-16 08:26] LABS: Influenza A, PCR NEGATIVE (NEGATIVE); Influenza B, PCR NEGATIVE (NEGATIVE); Resp Syncytial Virus, PCR NEGATIVE (NEGATIVE); SARS-Cov-2 (COVID-19) PCR, MMC NEGATIVE (NEGATIVE)
[2025-01-16 09:05] VITALS: BP 135/98
== END 2025-01-16 09:04 | disposition home or self-care (01) ==
LOC: ER 06:31
PROVIDERS: Emergency Medicine
DX: F15.10 Other stimulant abuse, uncomplicated (principal); K21.9 Gastro-esophageal reflux disease without esophagitis; F17.200 Nicotine dependence, unspecified, uncomplicated; Z88.6 Allergy status to analgesic agent; Z88.8 Allergy status to other drugs, medicaments and biological substances
CPT/HCPCS: 71046; 80053; 84484; 85025; 87637; 93005; 93010; 99285-25

== ENCOUNTER 2025-03-30 13:57 | Emergency (ER) | payer OTHER ==
[~2025-03-30] VITALS: Ht 162.6 cm; Wt 59.0 kg
[2025-03-30] MEDS ORDERED: NS 1,000 ML IV SCH (14:25)
[2025-03-30 15:15] LABS: BASOPHILS ABSOLUTE AUTO 0.05 K/mm3 (0.00-0.23); BASOPHILS PERCENT AUTO 1 % (0-2); EOSINOPHILS ABSOLUTE AUTO 0.09 K/mm3 (0.00-0.68); EOSINOPHILS PERCENT AUTO 1 % (0-6); Hematocrit 39.4 % (33.0-51.0); Hemoglobin 12.5 g/dL (11.5-16.0); IMMATURE GRAN ABSOLUTE AUTO 0.03 K/mm3 (0.00-0.10); IMMATURE GRAN PERCENT AUTO 0 % (0-1); LYMPHOCYTES ABSOLUTE AUTO 2.89 K/mm3 (0.84-5.20); LYMPHOCYTES PERCENT AUTO 30 % (21-46); MONOCYTES ABSOLUTE AUTO 0.72 K/mm3 (0.16-1.47); MONOCYTES PERCENT AUTO 7 % (4-13); Mean Corpuscular HGB Conc 31.7 g/dL (31.5-36.5); Mean Corpuscular Volume 88 fL (80-100); NEUTROPHILS ABSOLUTE AUTO 5.99 K/mm3 (1.96-9.15); NEUTROPHILS PERCENT AUTO 61 % (41-73); NRBC ABSOLUTE 0.00 K/mm3 (0.00-0.02); NRBC Auto 0.0 /100 WBC (0.0-0.2); Platelet Count 325 K/mm3 (150-400); RDW Coefficient Variation 14.4 % (11.7-14.2); RDW Standard Deviation 46.0 fL (35.1-46.3)
[2025-03-30 15:35] VITALS: BP 155/105
[2025-03-30 15:38] LABS: Alanine Aminotransfer (ALT/SGP 39.0 U/L (12-78); Albumin, Blood 3.6 g/dL (3.4-5.0); Albumin/Globulin Ratio 1.0 (0.8-1.8); Anion Gap 9.0 mmol/L (3-11); Aspartate Aminotrans (AST/SGOT 22.0 U/L (12-37); Bilirubin, Total 0.3 mg/dL (0.1-1.0); Blood Urea Nitrogen 18.0 mg/dL (8-24); CO2, Blood 30.0 mmol/L (21-32); Calcium, Blood 8.8 mg/dL (8.5-10.1); Chloride, Blood 104.0 mmol/L (98-108); Creatinine, Blood 0.84 mg/dL (0.40-1.00); Globulin, Blood 3.7 g/dL (2.2-4.0); Glucose, Blood 112.0 mg/dL (70-99); Potassium, Blood 3.6 mmol/L (3.5-5.5); Sodium, Blood 139.0 mmol/L (136-145); Total Protein, Blood 7.3 g/dL (6.4-8.2)
== END 2025-03-30 16:28 | disposition home or self-care (01) ==
LOC: ER 13:57
PROVIDERS: Emergency Medicine
DX: T40.411A Poisoning by fentanyl or fentanyl analogs, accidental (unintentional), initial encounter (principal); F11.90 Opioid use, unspecified, uncomplicated; F15.10 Other stimulant abuse, uncomplicated; Z59.00 Homelessness unspecified
CPT/HCPCS: 80053; 85025; 93005; 93010; 99284-25